=== PATIENT | female | born 1985 ===

== ENCOUNTER 2016-11-17 13:15 | Emergency (ER) | payer OTHER ==
[~2016-11-17] VITALS: Ht 180.3 cm; Wt 100.0 kg
[2016-11-17 13:24] VITALS: BP 128/78; PULSE 94; RESP 14; O2SAT 99
--- NOTE | 2016-11-17 14:27 | ED.REPORT ---
HPI-Rash / Abscess Date of Service Nov 17, 2016 ED Provider: Franky Bhatt MD Patient is a 31 year old female who presents to the ED complaining of right shoulder pain where she had a ruptured cyst. The patient was seen yesterday at [facility] ED for the cyst that she had for a week and was given antibiotics, that she has taken two doses of. Associated symptoms include subjective fever, chills, nausea, vomiting and a throbbing headache. She denies dysuria. The patient reports the pain as a 9/10. She called her primary care physician, Dr. Martinez this morning who recommended she come to the ED. She states that she has never had any cysts like this before. Nursing Notes Stated Complaint: CYST,NAUSEA,FEVER Chief Complaint: General Complaint Nursing Notes Reviewed: Yes Allergies: Coded Allergies: ondansetron (Verified Allergy, Severe, stop breathing, 11/17/16) prochlorperazine (Verified Adverse Reaction, Severe, 11/17/16) Scheduled Clindamycin (Clindamycin) 150 Mg Capsule 150 MG PO QID Scheduled PRN Oxycodone HCl/Acetaminophen 5-325 (Endocet 5-325) 1 Each Tablet 1-2 TABLET PO Q4H PRN PRN For Pain General Time Seen by MD: 14:27 Chief Complaint Return visit, abscess Hx Obtained From: Patient Arrived By: Walk-in Onset Occurred: 1 week ago Location: : Shoulder Severity: Current: Pain level 9 out of 10 Associated with: Reports Fever (subjective), Reports Headache, Reports Vomiting Past Medical History Past Medical History lung cancer Past Surgical History Reports: Smoking History Current Every Day Smoker Social History Drug Use: Denies drug use, THC Other Social History: Good social support, , From out of town Ambulatory Status Independent Review of Systems Constitutional: Reports: Chills, Fever (subjective) Respiratory: Denies: Non-productive cough, Shortness of breath GI: Reports: Nausea, Vomiting Musculoskeletal: Reports: Extremity pain (right shoulder) Female: Denies: Dysuria Neurologic: Reports: Headache Physical Exam Initial Vital Signs Vital Signs (First) Date Time Temp Pulse Resp B/P Pulse Ox O2 Delivery O2 Flow Rate FiO2 11/17/16 13:24 36.7 94 14 128/78 99 Room Air Initial VS: Reviewed General/Constitutional: Awake, Alert, No acute distress Skin: No rash, Warm Abscess Notes: 3 cm cycst on the left shoulder at the apex there is a 5mm incision consistent of a recent I&D endurated and warm thick material easily expressed Head / Eyes: Atraumatic, Normocephalic, PERRL, EOMI, No photophobia Respiratory / Chest: Atraumatic, Breath sounds NL, Breath sounds = bilat, No respiratory distress Cardiovascular: Heart rate NL, Regular rhythm, Heart sounds NL, No murmurs Neck: Atraumatic, Supple Abdomen: Atraumatic, Soft, Non-tender Back: Atraumatic, Full range of motion, No CVA tenderness Psychiatric: Affect NL, Mood NL Interpretation & Diagnostics Lab Results Interpretation Result Diagram: 11/17/16 1612 11/17/16 1612 Test 11/17/16 16:12 11/17/16 16:45 White Blood Count 11.3th/mm3 (3.8-10.1) Red Blood Count 4.55mil/mm3 (3.90-5.20) Hemoglobin 13.2g/dL (12.0-15.6) Hematocrit 39.8% (35.0-46.0) Mean Corpuscular Volume 87.5fL (81-100) Mean Corpuscular Hemoglobin 29.0pg (27.0-35.0) Mean Corpuscular Hemoglobin Concent 33.2% (32.0-37.0) Red Cell Distribution Width 13.4% (12.3-15.4) Platelet Count 300bil/L (150-400) Neutrophils (%) (Auto) 80.8% (40-74) Lymphocytes (%) (Auto) 12.3% (14-46) Monocytes (%) (Auto) 5.9% (4-12) Eosinophils (%) (Auto) 0.4% (0-5) Basophils (%) (Auto) 0.4% (0-3) Sodium Level 138mEq/L (134-144) Potassium Level 4.7mEq/L (3.5-5.2) Chloride Level 101mEq/L (97-108) Carbon Dioxide Level 23mmol/L (18-29) Blood Urea Nitrogen 7mg/dL (6-20) Creatinine 0.72mg/dL (0.57-1.00) Estimat Glomerular Filtration Rate 136mL/min (>59) Glucose Level 111mg/dL (60-99) Calcium Level 9.9mg/dL (8.5-10.1) Total Bilirubin 0.2mg/dL (0.0-1.2) Aspartate Amino Transf (AST/SGOT) 15U/L (0-50) Alanine Aminotransferase (ALT/SGPT) 15U/L (0-32) Alkaline Phosphatase 69U/L (25-150) Total Protein 7.2g/dL (6.4-8.4) Albumin 4.2g/dL (3.4-5.0) Hold Tyson Top Tube Received (Received) Urine Color Yellow (YELLOW) Urine Appearance Hazy (CLEAR,HAZY) Urine pH 7.0 (5.0-8.0) Urine Specific [place] <1.005 (1.003-1.035) Urine Protein Negativemg/dL (NEG,TRACE) Urine Glucose (UA) Negativemg/dL (NEGATIVE) Urine Ketones Negativemg/dL (NEGATIVE) Urine Occult Blood Moderate (NEGATIVE) Urine Nitrite Negative (NEGATIVE) Urine Bilirubin Negative (NEGATIVE) Urine Urobilinogen Normalmg/dL (NORMAL) Urine Leukocyte Esterase Trace (NEGATIVE) Urine RBC 3-10/hpf (0-2) Urine WBC 6-10/hpf (0-5) Urine Epithelial Cells Many/hpf (NONE-MOD) Urine Crystals None seen (NONE SEEN) Urine Bacteria Many/hpf (NONE-FEW) Urine Hyaline Casts None/lpf (NONE) Urine Granular Casts None seen (NONE SEEN) Urine Waxy Casts None seen (NONE SEEN) Urine Red Blood Cell Casts None seen (NONE SEEN) Urine White Blood Cell Casts None seen (NONE SEEN) Urine Mucus None seen (None Seen) Urine Trichomonas None seen (NONE SEEN) Urine Yeast None (NONE SEEN) Urinalysis Comment None Urine Culture Reflexed Indicated Lab Results Interpretation: test: negative Procedures Incision & Drainage Abscess Time: 17:51 Procedure Performed by: ED physician Consent / Setup / Site Prep: Consent from patient, Hand hygiene observed Location of Abscess: left shoulder Local Anesthesia: Other (Mepivacaine .5%) Post-Procedure / Complications: Packing placed, No complications, Condition improved, Tolerated procedure well, Patient stable Re-Eval/Medical Decision Med Decision/Clinical Course I, Dr Estefany Brooks, never saw this patient. I have nothing to do with this chart nor the management of this patient. Source of Hx: Old records Re-Evaluation/Progress #1: Time of Eval: 16:33 Re-Evaluation/Progress Note: Acutely agitated. ordered Lorazepam Re-Evaluation/Progress #2: Time of Eval: 17:21 Patient Status: Condition improved Re-Evaluation/Progress Note: Rechecked patient. Expressed thick curd-like material from cyst, required infiltration of 0.5% marcaine local for this. Thick material was easily expressed. Re-Evaluation/Progress #3: Time of Eval: 17:36 Re-Evaluation/Progress Note: Discussed plan for drainage and discharge. The patient understands and agrees to the procedure and discharge. All questions were addressed. Counseled Regarding: Diagnosis, Lab results, Need for follow-up, When/why to return to ED Discharge & Departure Impression: Primary Impression: Abscess of right shoulder Additional Impressions: Headache Headache type: unspecified Headache chronicity pattern: acute headache Intractability: not intractable Qualified Code: R51 - Headache Nausea and vomiting Vomiting type: unspecified Vomiting Intractability: non-intractable Qualified Code: R11.2 - Nausea with vomiting, unspecified Disposition: Home Discharge Condition All VS Reviewed: Yes Condition: Stable Patient Instructions: Abscess (ED) Additional Instructions: Emergency Department evaluation included interview, examination, labs and drainage of right shoulder abscess with packing placement. We gave Compazine for nausea which caused acute agitation, in the future report the tube had adverse reactions to Compazine when lasted about allergies. Because of reported nausea and headaches with trimethoprim sulfa, we will advise him to stop that and use clindamycin as prescribed. Change the packing on your shoulder daily, remove the previous packing, rinse with shower, and place new packing. Keep the wound covered with a large Band-Aid. Use Percocet 1 every 4 hours as needed for pain, this should mainly be necessary for dressing changes. Follow up with primary care in 2 days as scheduled. Return emergency Department for fever or shaking chills uncontrolled vomiting, increased redness or swelling in shoulder. [employer] Attestation Portions of this note were transcribed by Zahraa Williamson. I, Dr. Bhatt personally performed the history, physical exam and medical decision-making; I reviewed and confirmed the accuracy of the information in the transcribed note. Signed by: Fuad Lynch, 4. and 1755. Estefany Brooks MD Nov 17, 2016 14:27 Theresa Williamson Nov 17, 2016 16:04 Franky Bhatt MD Nov 17, 2016 18:03
[2016-11-17] MEDS ORDERED: HYDROcodone-APAP 5-325 mg Tablet PO ONE (16:05)
[2016-11-17] MEDS ORDERED: ProchlorPERazine 5 mg/mL 2 mL Inj IVPUSH ONE (16:05)
[2016-11-17 16:25] LABS: BASOPHILS % (AUTO) 0.4 % (0-3); EOSINOPHILS % (AUTO) 0.4 % (0-5); MONOCYTES % (AUTO) 5.9 % (4-12); Mean Corpuscular Volume 87.5 fL (81-100); NEUTROPHILS % (AUTO) 80.8 % (40-74); Platelet Count 300 bil/L (150-400)
[2016-11-17 16:41] VITALS: BP 135/74; PULSE 80; RESP 19; O2SAT 96
[2016-11-17] MEDS ORDERED: Bupivacaine-MPF 0.5% 30 mL Inj ONE (17:26)
[2016-11-17 17:40] LABS: APPEARANCE,URINE HAZY (CLEAR,HAZY); COLOR,URINE YELLOW (YELLOW); OCCULT BLOOD,URINE MODERATE (NEGATIVE); UROBILINOGEN,URINE NORMAL (NORMAL)
[2016-11-17 17:52] VITALS: BP 140/73; PULSE 90; RESP 15; O2SAT 98
[2016-11-17] MEDS ORDERED: CLIN-77 PO (18:04)
[2016-11-17] MEDS ORDERED: OXYC-407 PO (18:04)
[2016-11-17 18:15] VITALS: BP 112/60; PULSE 77; O2SAT 98
[2016-11-17 18:23] VITALS: BP 112/60; PULSE 77; O2SAT 98
== END 2016-11-17 18:36 | disposition home or self-care (01) ==
LOC: SED 13:15
DX: L02.413 Cutaneous abscess of right upper limb (principal); R51 Headache; R11.2 Nausea with vomiting, unspecified; R50.9 Fever, unspecified; F17.200 Nicotine dependence, unspecified, uncomplicated; Z88.8 Allergy status to other drugs, medicaments and biological substances
CPT/HCPCS: 10061; 36415; 80053; 81000; 81025; 85025; 87086; 87088; 96374; 96375; 99285; J0780; J2060